=== PATIENT | female | born 1975 | race Asian ===

== ENCOUNTER 2016-06-14 00:15 | Inpatient (IN) | payer SELFPAY ==
[~2016-06-14] VITALS: Ht 167.6 cm; Wt 72.1 kg
[2016-06-14 01:00] VITALS: BP 110/72
[2016-06-14] MEDS ORDERED: LACTATED RINGERS 1,000 ML IV SCH (01:13)
[2016-06-14] MEDS ORDERED: OXYTOCIN 20 UNITS/LR PREMIX 1,000 ML IV SCH (01:15)
[2016-06-14] MEDS ORDERED: METHYLERGONOVINE 0.2 MG/ML AMP IM PRN ×2 (01:15→14:55)
[2016-06-14] MEDS ORDERED: OXYTOCIN 10 UNITS/ML VIAL IM SCH (01:15)
[2016-06-14] MEDS ORDERED: OXYTOCIN 20 UNITS/LR PREMIX 1,000 ML IV ONE (01:49)
[2016-06-14] MEDS ORDERED: LACTATED RINGERS 500 ML IV ONE (02:00)
[2016-06-14] MEDS ORDERED: FERROUS SULFAT325 M1 PO (02:27)
[2016-06-14] MEDS ORDERED: PRENATAL VITAMI1 TA2 PO (02:27)
[2016-06-14] MEDS ORDERED: INFLUENZA VIRUS VACCINE QUAD 0.5 ML SYR IMVAC SCH (02:45)
--- NOTE | 2016-06-14 07:10 | NUR ---
PATIENT HAS BEEN SCREENED AND CATEGORIZED LOW NUTRITION RISK. PATIENT WILL BE SEEN WITHIN 7 DAYS OF ADMISSION. 06/21/16 RAZ HERMOSILLO MS, RDN
[2016-06-14] MEDS ORDERED: ROPIVACAINE 0.2%/NS PREMIX 250 ML EPI ONE (07:17)
[2016-06-14] MEDS ORDERED: OXYTOCIN 10 UNITS/ML VIAL ONE (09:06)
[2016-06-14] MEDS ORDERED: oxyCODONE/APAP 5/325 MG 1 TAB TAB PO PRN (14:55)
[2016-06-14] MEDS ORDERED: IBUPROFEN 800 MG TAB PO PRN (14:55)
[2016-06-14] MEDS ORDERED: HYDROcodone/APAP 5/325 MG 1 TAB TAB PO PRN (14:55)
[2016-06-14] MEDS ORDERED: WITCH HAZEL 40 PAD PACKAGE TP PRN (14:55)
[2016-06-14] MEDS ORDERED: TEMAZEPAM 15 MG CAP PO PRN (14:55)
[2016-06-14] MEDS ORDERED: OXYTOCIN 10 UNITS/ML VIAL IM PRN (14:55)
[2016-06-14] MEDS ORDERED: BENZOCAINE/MENTHOL 20%-0.5% 60 GM CAN TP PRN (14:55)
[2016-06-14] MEDS ORDERED: MEASLES, MUMPS, AND RUBELLA 1 VIAL SQVAC PRN (14:55)
[2016-06-14] MEDS ORDERED: DOCUSATE SOD/SENNA 50/8.6 MG 1 TAB PO SCH (21:00)
[2016-06-15] MEDS ORDERED: INFLUENZA VIRUS VACCINE QUAD 0.5 ML SYR IMVAC SCH (01:55)
== END 2016-06-15 16:00 | disposition home or self-care (01) | DRG 775 ==
LOC: MLD 00:15 → MFCC 14:50
PROVIDERS: ADMIT Obstetrics & Gynecology; ATTEND Obstetrics & Gynecology
PROC: 10E0XZZ Delivery of Products of Conception, External Approach (ICD-10-PCS; principal; 2016-06-14)
PROC: 10907ZC Drainage of Amniotic Fluid, Therapeutic from Products of Conception, Via Natural or Artificial Opening (ICD-10-PCS; 2016-06-14)
PROC: 0W8NXZZ Division of Female Perineum, External Approach (ICD-10-PCS; 2016-06-14)
PROC: 00HU33Z Insertion of Infusion Device into Spinal Canal, Percutaneous Approach (ICD-10-PCS; 2016-06-14)
PROC: 3E0R3CZ (ICD-10-PCS; 2016-06-14)
PROC: 3E0234Z Introduction of Serum, Toxoid and Vaccine into Muscle, Percutaneous Approach (ICD-10-PCS; 2016-06-15)
DX: O75.89 Other specified complications of labor and delivery (principal); O69.81X0 Labor and delivery complicated by cord around neck, without compression, not applicable or unspecified; Z3A.39 39 weeks gestation of pregnancy; Z37.0 Single live birth; O09.523 Supervision of elderly multigravida, third trimester; Z23 Encounter for immunization